=== PATIENT | male | born 1990 | race Caucasian/White ===

== ENCOUNTER 2024-06-29 10:31 | Emergency (ER) | payer MEDICAID ==
[~2024-06-29] VITALS: Ht 185.4 cm; Wt 100.0 kg
[2024-06-29 10:38] VITALS: O2SAT 97
[2024-06-29 10:39] VITALS: BP 154/90; PULSE 89; RESP 18; TEMP 98.5; O2SAT 99
[2024-06-29] MEDS: KETOROLAC 30MG/ML VIAL IM ONE (12:21)
[2024-06-29] MEDS: ACETAMINOPHEN 325MG TABLET PO ONE (12:22)
[2024-06-29] MEDS: OXYCODONE HCL/ACETAMINOPHEN 5/325MG TABLET PO ONE (13:53)
== END 2024-06-29 13:56 | disposition home or self-care (01) ==
LOC: ER 10:31
DX: M54.31 Sciatica, right side (principal)
CPT/HCPCS: 99285; 72131; 96372; J1885